=== PATIENT | female | born 1965 | race Caucasian/White ===

== ENCOUNTER 2019-07-16 21:29 | Emergency (ER) | payer OTHER ==
[~2019-07-16] VITALS: Ht 172.7 cm; Wt 90.7 kg
[~2019-07-16 21:29] MED LIST: ALBU90OI61 INH; ASPI81EC PO; CYCL10 PO; LISI20 PO; NAPR500 PO; OXYACE5T PO; Prednisone20 MG PO; RXOXYACE PO; SPIHYD PO; TRAM50 PO; ZESTRIL40 MG PO; Zofran8 MG PO
[2019-07-17] MEDS ORDERED: Bactrim Ds Tab1 EACH PO (00:12)
== END 2019-07-17 00:25 | disposition home or self-care (01) ==
LOC: ER 21:29
DX: L02.416 Cutaneous abscess of left lower limb (principal); I10 Essential (primary) hypertension; F17.210 Nicotine dependence, cigarettes, uncomplicated; Z88.5 Allergy status to narcotic agent
CPT/HCPCS: 10060; 99282-25

== ENCOUNTER 2019-11-05 02:58 | Inpatient (IN) | payer OTHER ==
[~2019-11-05] VITALS: Ht 170.2 cm; Wt 91.1 kg
[~2019-11-05 02:58] MED LIST changes: +Bactrim Ds Tab1 EACH PO
[2019-11-05 03:51] LABS: BASOPHILS ABSOLUTE AUTO 0.05 K/mm3 (0.00-0.23); BASOPHILS PERCENT AUTO 1 % (0-2); EOSINOPHILS PERCENT AUTO 1 % (0-6); Hematocrit 40.8 % (33.0-51.0); Hemoglobin 13.8 g/dL (11.5-16.0); IMMATURE GRAN ABSOLUTE AUTO 0.02 K/mm3 (0.00-0.10); IMMATURE GRAN PERCENT AUTO 0 % (0-1); LYMPHOCYTES PERCENT AUTO 21 % (21-46); MONOCYTES ABSOLUTE AUTO 0.85 K/mm3 (0.16-1.47); MONOCYTES PERCENT AUTO 9 % (4-13); Mean Corpuscular HGB 29.1 pg (26.0-34.0); Mean Corpuscular HGB Conc 33.8 g/dL (31.5-36.5); Mean Corpuscular Volume 86 fL (80-100); Mean Platelet Volume 10.3 fL (9.1-12.4); NEUTROPHILS PERCENT AUTO 68 % (41-73); Platelet Count 210 K/mm3 (150-400); RDW Coefficient Variation 11.5 % (11.7-14.2); RDW Standard Deviation 36.6 fL (35.1-46.3); Red Blood Cell Count 4.75 M/mm3 (3.80-5.20); White Blood Cell Count 9.52 K/mm3 (4.00-11.30)
[2019-11-05 04:10] LABS: Alanine Aminotransfer (ALT/SGP 29 U/L (12-78); Albumin, Blood 3.7 g/dL (3.4-5.0); Albumin/Globulin Ratio 1.1 (0.8-1.8); Alk Phos 74 U/L (50-136); Anion Gap 9 mmol/L (6-16); Aspartate Aminotrans (AST/SGOT 17 U/L (12-37); Bilirubin, Total 0.8 mg/dL (0.1-1.0); Blood Urea Nitrogen 22 mg/dL (8-24); Bun/Creatinine Ratio 19.8 (12.0-20.0); CO2, Blood 27 mmol/L (21-32); Calcium, Blood 8.9 mg/dL (8.5-10.1); Chloride, Blood 106 mmol/L (98-108); Creatinine, Blood 1.11 mg/dL (0.40-1.00); Ethanol (Alcohol), Blood, Med <3 mg/dL; Globulin, Blood 3.4 g/dL (2.2-4.0); Glomerular Filtration Rate 54 (60-); Glucose, Blood 113 mg/dL (70-99); Potassium, Blood 3.7 mmol/L (3.5-5.5); Sodium, Blood 142 mmol/L (136-145); Total Protein, Blood 7.1 g/dL (6.4-8.2); Troponin I <0.015 ng/mL (0.000-0.040)
--- NOTE | 2019-11-05 14:30 | NUR ---
PT ARRIVED TO ROOM VIA W/C FROM ED. WHEN FIRST SEEN PT RUBBING HER ABDOMEN AND MOANING ABOUT HER PAIN BEING SO BAD. A FRIEND ARRIVED WITH HER. PT REPORTS SHE HAS BEEN STATING SHE HAS BEEN IN SO MUCH PAIN ALL DAY. OBSERVED PT WOULD APPEAR MORE PAINFUL AT TIMES THAN OTHERS. TENDER TO ANY PALPATION.
--- NOTE | 2019-11-05 19:09 | NUR ---
SHIFT SUMMARY FENTANYL GIVEN BUT REPORTED IT DIDN'T LAST MORE THAN A FEW MINUTES. CALLED MD AND GOT NEW ORDERS. PT DIDN'T OBJECT TO DILAUDID. PHENERGAN GIVEN WITH IT TO AID IN [place]USE[place]. DR. WOODY IN TO SEE PT. ECHO COMPLETED AND EKG SEEN BY MD. SPOKE WITH DR. SLATER ABOUT PT CONTINUED ELEVATED BP. HYDRALAZINE ORDERED. SLEPT FROM 1715 ONWARD.
[2019-11-05 21:29] LABS: Troponin I <0.015 ng/mL (0.000-0.040)
[2019-11-05 21:48] LABS: Free Thyroxine 1.36 ng/dL (0.70-1.60)
[2019-11-05 21:51] LABS: Triiodothyronine, Free 2.61 pg/mL (2.18-3.98)
--- NOTE | 2019-11-05 23:41 | NUR ---
PT TRANSFER ASSUMED CARE OF PT AT 1900. PT IS ALERT AND ORIENTED X4. PT IS VERY NAESEATED AND C/O PAIN IN HER ABDOMEN AND UNDER HER RIBS, MEDICATED PER EMAR. PT BP WAS ELEVATED TO THE 200 SYSTOLIC, HYDROLAZINE ADMINISTERED PER DAYSHIFT DOCTOR AT 1900. PT BP CONTINUES TO BE INCREASED AFTER 1 HR. DOCOTOR NOTIFED, ORDERED VASOTEC IV AND CATAPRES PO. BP WAS STILL ELEVATED AFTER 1 HR, DOCTOR ORDERED PT TO BE DISCHARGED TO ICU 13 AND FOR FLUIDS TO BE DC DUE TO EDEMA IN EXTREMITIES. REPORT GIVEN TO LI Farr RN. PT LEFT ROOM AT 2340.
[2019-11-06 02:14] LABS: U Amphetamine Screen DETECTED; U Barbituate Screen Not Detected; U Benzodiazapine Screen Not Detected; U Buprenorphine Screen Not Detected; U Cannabinoids Screen Not Detected; U Cocaine Screen Not Detected; U Methadone Screen Not Detected; U Methamphetamine Screen Not Detected; U Opiates Screen Not Detected; U Oxycodone Screen Not Detected; U Phencyclidine Screen Not Detected; U Propoxyphene Screen Not Detected
[2019-11-06 05:20] LABS: BASOPHILS ABSOLUTE AUTO 0.04 K/mm3 (0.00-0.23); BASOPHILS PERCENT AUTO 0 % (0-2); EOSINOPHILS ABSOLUTE AUTO 0.02 K/mm3 (0.00-0.68); EOSINOPHILS PERCENT AUTO 0 % (0-6); Hematocrit 44.8 % (33.0-51.0); Hemoglobin 15.3 g/dL (11.5-16.0); IMMATURE GRAN ABSOLUTE AUTO 0.08 K/mm3 (0.00-0.10); IMMATURE GRAN PERCENT AUTO 1 % (0-1); LYMPHOCYTES ABSOLUTE AUTO 1.13 K/mm3 (0.84-5.20); LYMPHOCYTES PERCENT AUTO 7 % (21-46); MONOCYTES ABSOLUTE AUTO 1.54 K/mm3 (0.16-1.47); MONOCYTES PERCENT AUTO 9 % (4-13); Mean Corpuscular HGB 29.1 pg (26.0-34.0); Mean Corpuscular HGB Conc 34.2 g/dL (31.5-36.5); Mean Corpuscular Volume 85 fL (80-100); Mean Platelet Volume 10.4 fL (9.1-12.4); NEUTROPHILS ABSOLUTE AUTO 13.59 K/mm3 (1.96-9.15); NEUTROPHILS PERCENT AUTO 83 % (41-73); Platelet Count 185 K/mm3 (150-400); RDW Coefficient Variation 11.8 % (11.7-14.2); Red Blood Cell Count 5.26 M/mm3 (3.80-5.20)
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
--- NOTE | 2019-11-06 08:38 | NUR ---
CARE ASSUMED REPORT RECEIVED AFTER BEDSIDE REPORT FROM URI FERNANDEZ AT 0700. PT ASLEEP, AROUSES WHEN STAFF ENTER ROOM. PT'S FRIEND AT BEDSIDE ASLEEP. PT REPORTING PAIN IN ABDOMEN/CHEST/BACK. MEDICATED WITH TYLENOL. ALSO HYPERTENSIVE, MEDICATED PER EMAR. PT ALSO MEDICATED FOR ANXIETY. SEE VITALS FLOWSHEETS. SEE ASSESSMENT. PT DENIES FURTHER NEEDS AT THIS TIME, REQUESTING TO REST WITHOUT FURTHER VISITORS OR PHONE CALLS UNTIL LATER. PT'S FRIEND WENT HOME.
--- NOTE | 2019-11-06 09:55 | NUR ---
PROVIDER COMMUNICATION DR. SLATER TO BEDSIDE FOR ASSESSMENT. DR. SLATER PLANS TO ORDER PO ANTIHYPERTENSIVE MEDICATIONS. ORDER TO TRANSFER PCU STATUS.
--- NOTE | 2019-11-06 19:00 | NUR ---
SUMMARY SINCE PREVIOUS NOTE, PT HAS BEEN STARTED ON NORVASC AND METOPROLOL. BP MAINTAINING CONTINUES TO BE MODERATELY HYPERTENSIVE, DID MEDICATE WITH HYDRALAZINE ONCE THIS AFTERNOON. SEE FLOWSHEET AND EMAR. OTHERWISE, PT HAS CONTINUED TO HAVE PAIN BUT DECLINES FURHTER INTERVENTION BEYOND TYLENOL. MEDICATED TWICE WITH ATIVAN. PT HAS SLEPT THE MAJORITY OF DAY, BUT AROUSES EASILY FOR REASSESSMENTS. PT HAS HAD MULTIPLE VISITORS AND MULTIPLE PEOPLE CALLING FOR UPDATES. UPDATES GIVEN ABLE AND ALSO MANY PHONE CALLS TRANSFERRED INTO THE ROOM. PT REQUESTING FOOD TONIGHT. ORDER RECEIVED FROM DR. SLATER. PT ATE AND REPORTS, "MY PAIN IS WORSE BUT I FEEL BETTER." SINCE THEN, PT BACK TO SLEEP. PT HAS NOT USED CALL LIGHT FOR NEEDS, BUT ARTICULATES THEM CLEARLY WHEN STAFF IS IN ROOM. DECLINES BATH OR SHOWER, REPORTS JUST WANTING TO REST. OT
--- NOTE | 2019-11-06 19:31 | NUR ---
REPORT TO URI GUZMÁN TO ASSUME CARE
--- NOTE | 2019-11-06 20:00 | NUR ---
ASSUMED CARE BEDSIDE REPORT TAKEN FROM IKE GREWAL. PT SLEEPING IN ROOM AT THIS TIME APPEARS TO BE COMFORTABLE. RESP EVEN UNLABORED ONR A W/ SATS >92%. PT APPEARS TO BE COMFORTABLE AND PAIN FREE SLEEPING SOUNDLY. PER DAY RN PT IS ABLE TO AMBULATE FROM BED TO TOILET W/O ASSIST, AND USES CALL LIGHT APPROPRIATELY FOR NEEDS. PT IS REPORTED BEING PAINFUL AT TIMES, WILL MEDICATE NEEDED PER EMAR. CALL LIHT IN REACH OF PT.
--- NOTE | 2019-11-07 05:44 | NUR ---
SHIFT SUMMARY PT SLEEPING IN ROOM COMFORTABLY AT THIS TIME. NO ACUTE CHANGES IN STATUS T/O NIGHT. PT SLEPT WELL. RESP EVEN UNLABORED ON RA W/ SATS >92%. PT DENIED ANY SOB T/O NIGHT. DID REPORT CP MULTIPLE TIMES T/O NIGHT, PT WAS AT FIRST UNABLE TO DESCRIBE PAIN TO THIS RN, THEN REPORTED PAIN MUSKULOSKELETAL LATER IN SHIFT. HEAT PAD WAS PROVIDED FOR CHEST WALL PAIN, AND PT WAS MEDICATED PER EMAR. PT IS ABLE TO AMB ULATE IN ROOM INDEPENDENTLY TO TOILET. PT DISCONNECTS HEART MONITOR LEADS, AND RECONNECTS WHEN DONE. NO OTHER CHANGES T/O SHIFT. WILL REPORT TO ONCOMING RN. CALL LIGHT IN REACH OF PT.
[2019-11-07] MEDS ORDERED: AMLO5 PO (11:23)
[2019-11-07] MEDS ORDERED: ROXICODONE5 MG PO (11:24)
[2019-11-07] MEDS ORDERED: METO25 PO (11:25)
--- NOTE | 2019-11-07 14:04 | NUR ---
DISCHARGE INSTRUCTIONS GIVEN AND GONE OVER WITH PT. DISCUSSED WITH PT THE IMPORTANCE OF GETTING AND TAKING HER BLOOD PRESSURE MEDICATIONS. ALSO DISCUSSED WITH PT THE POSSIBLE OPTIONS AVAILABLE FOR SETTING UP A PRIMARY CARE PHYSICAN AND FOLLOWING UP WITH . PT STATED UNDERSTANDING AND HAD NO ADDITIONAL QUESTIONS. BELONGINGS GATHERED AND GIVEN TO PT. PT WAS ESCORTED OUT WITH FRIEND AND RN VIA W/C.
== END 2019-11-07 13:45 | disposition home or self-care (01) | DRG 305 ==
LOC: ER 02:58 → ERHOLD 06:09 → MEDS 06:09 → ICUW 23:41
PROVIDERS: Emergency Medicine; Internal Medicine; Nurse Practitioner Acute Care; ADMIT Internal Medicine
DX: I16.1 Hypertensive emergency (principal); I10 Essential (primary) hypertension; F17.210 Nicotine dependence, cigarettes, uncomplicated; R00.1 Bradycardia, unspecified; E78.5 Hyperlipidemia, unspecified; E66.9 Obesity, unspecified; Z68.32 Body mass index [BMI] 32.0-32.9, adult; F32.9 Major depressive disorder, single episode, unspecified; F15.10 Other stimulant abuse, uncomplicated
CPT/HCPCS: 36415; 71045; 74176; 76705; 80053; 83605; 83690; 84439; 84443; 84481; 84484; 85025; 93005; 93010; 93306; 96361; 96365; 96366; 96374; 96375; 96376; 99285-25; A9270; G0378; G0480; J0360; J1170; J1650; J2405; J2550; J3010; J7030; J7050; J7120

== ENCOUNTER 2020-06-24 17:08 | Emergency (ER) | payer OTHER ==
[~2020-06-24] VITALS: Ht 172.7 cm; Wt 94.3 kg
[~2020-06-24 17:08] MED LIST changes: +AMLO5 PO; +METO25 PO; +ROXICODONE5 MG PO
[2020-06-24] MEDS ORDERED: ACET325 PO (18:25)
[2020-06-24] MEDS ORDERED: CITA20 PO (18:26)
[2020-06-24] MEDS ORDERED: TOPROL XL200 MG PO (18:27)
[2020-06-24] MEDS ORDERED: AMLO10 PO (18:28)
[2020-06-24] MEDS ORDERED: LOSA25 PO (18:28)
== END 2020-06-24 19:14 | disposition left against medical advice (07) ==
LOC: ER 17:08
DX: Z53.21 Procedure and treatment not carried out due to patient leaving prior to being seen by health care provider (principal)
CPT/HCPCS: 93971

== ENCOUNTER → 2021-07-29 | Outpatient (CLI) | payer OTHER ==
[~2021-07-29] MED LIST changes: +ACET325 PO; +AMLO10 PO; +CITA20 PO; +LOSA25 PO; +TOPROL XL200 MG PO
[2021-07-29 13:35] LABS: BASOPHILS ABSOLUTE AUTO 0.07 K/mm3 (0.00-0.23); BASOPHILS PERCENT AUTO 1 % (0-2); EOSINOPHILS ABSOLUTE AUTO 0.16 K/mm3 (0.00-0.68); EOSINOPHILS PERCENT AUTO 2 % (0-6); Hematocrit 44.6 % (33.0-51.0); Hemoglobin 15.1 g/dL (11.5-16.0); IMMATURE GRAN ABSOLUTE AUTO 0.02 K/mm3 (0.00-0.10); IMMATURE GRAN PERCENT AUTO 0 % (0-1); LYMPHOCYTES ABSOLUTE AUTO 1.62 K/mm3 (0.84-5.20); LYMPHOCYTES PERCENT AUTO 20 % (21-46); MONOCYTES ABSOLUTE AUTO 0.67 K/mm3 (0.16-1.47); MONOCYTES PERCENT AUTO 8 % (4-13); Mean Corpuscular HGB 29.2 pg (26.0-34.0); Mean Corpuscular HGB Conc 33.9 g/dL (31.5-36.5); Mean Corpuscular Volume 86 fL (80-100); Mean Platelet Volume 11.7 fL (9.1-12.4); NEUTROPHILS ABSOLUTE AUTO 5.55 K/mm3 (1.96-9.15); NEUTROPHILS PERCENT AUTO 69 % (41-73); Platelet Count 234 K/mm3 (150-400); RDW Standard Deviation 38.5 fL (35.1-46.3); Red Blood Cell Count 5.18 M/mm3 (3.80-5.20); White Blood Cell Count 8.09 K/mm3 (4.00-11.30)
[2021-07-29 14:15] LABS: Alanine Aminotransfer (ALT/SGP 32 U/L (12-78); Albumin, Blood 3.2 g/dL (3.4-5.0); Albumin/Globulin Ratio 0.8 (0.8-1.8); Alk Phos 83 U/L (50-136); Anion Gap 4 mmol/L (6-16); Aspartate Aminotrans (AST/SGOT 13 U/L (12-37); Bilirubin, Total 0.6 mg/dL (0.1-1.0); Blood Urea Nitrogen 19 mg/dL (8-24); Bun/Creatinine Ratio 20.3 (12.0-20.0); CO2, Blood 26 mmol/L (21-32); Calcium, Blood 8.8 mg/dL (8.5-10.1); Chloride, Blood 108 mmol/L (98-108); Creatinine, Blood 0.94 mg/dL (0.40-1.00); Free Thyroxine 1.01 ng/dL (0.70-1.60); Globulin, Blood 4.1 g/dL (2.2-4.0); Glomerular Filtration Rate >60 (60-); Glucose, Blood 99 mg/dL (70-99); Potassium, Blood 4.7 mmol/L (3.5-5.5); Sodium, Blood 138 mmol/L (136-145); Total Protein, Blood 7.3 g/dL (6.4-8.2); Triiodothyronine, Free 2.67 pg/mL (2.18-3.98)
== END | disposition home or self-care (01) ==
LOC: LAB 12:00 → LAB SHORT 12:00
PROVIDERS: Family Medicine
DX: E04.1 Nontoxic single thyroid nodule (principal); R60.9 Edema, unspecified
CPT/HCPCS: 80053; 84439; 84443; 84481; 85025

== ENCOUNTER → 2025-08-31 | Outpatient (CLI) | payer OTHER | END | disposition home or self-care (01) | LOC: LAB SHORT 16:00 → LAB 16:00 | DX: R10.A2 Flank pain, left side (principal) | CPT/HCPCS: 87086 ==

== ENCOUNTER → 2025-09-03 | Outpatient (CLI) | payer OTHER | LOC: LAB SHORT 16:31 → LAB 16:31 | DX: N39.0 Urinary tract infection, site not specified (principal); R31.9 Hematuria, unspecified | CPT/HCPCS: 87086 ==